=== PATIENT | female | born 2000 | race Caucasian/White ===

== ENCOUNTER 2024-09-11 20:30 | Emergency (ER) | payer BC, SELFPAY ==
[2024-09-11 20:33] VITALS: BP 141/95
--- NOTE | 2024-09-11 21:00 | ED.GENMED ---
History of Present Illness
General
Chief Complaint: Abdominal Pain
Source: patient
Exam Limitations: none
Time Seen by Provider: 09/11/24 20:59
Nursing documentation reviewed up to this point in time: agreed with
History of Present Illness
History of Present Illness:
24-year-old female with history of PCOS, POTS presents for pain across her upper abdomen which she's had off and on since June but today it was also at the same level in her back. Went to and sent here for evaluation.
She saw PCP 2 weeks ago for the upper abd pain and told to continue her Pepcid 20 mg BID which she has done. Pain today was 8/10 at one point, now 08/12, Denies f/c/n/v/d, has hx constipation takes Miralax prn, had BM this a.m. and also 2 days ago
but stool was hard and feels constipated.
LMP 08/13, went back on Loestrin OC in Jun and periods have been irregular.
Past History
Past History
ED Past Medical History: Other (PCOS, POTS)
ED Past Surgical History: None
Social History
Tobacco: Non-smoker
Alcohol: Occasional
Personal: Single
Living: with family
Employment: Student
Review of Systems
Review of Systems
Allergies reviewed?: Yes
All Other Systems: ROS reviewed and negative except as documented in HPI and ROS
Constitutional: Denies fever or chills
Respiratory: Denies trouble breathing
Cardiac: Denies chest pain
ABD/GI: Reports abdominal pain and constipated; Denies nausea, vomiting, diarrhea, bloody stools or black stools
: Denies dysuria, frequency, difficulty voiding or urgency
Musculoskeletal: Reports back pain (at bra level occurred today along with the pain across upper abdomen)
Skin: Reports no symptoms
Neurological: Reports no symptoms
Phy Exam
Physical Exam
Physical Exam:
GENERAL: No acute distress. A&Ox3.
CONSTITUTIONAL: Afebrile.
EYES: clear, conjunctivae normal
ENMT: moist mucus membranes
RESPIRATORY: Regular respirations, nonlabored, lungs clear.
CARDIOVASCULAR: Regular rate and rhythm, no murmurs, no rubs.
GI: Soft, pain to palpation across upper abdomen. normal BS
MUSCULOSKELETAL: Moves with ease. Well perfused.
SKIN: Warm, dry, pink
PSYCH: Normal mood and affect. Well kept, interactive and appropriate
NEUROLOGIC: Awake, alert and oriented. No focal neurological deficits
Course
Orders/Labs/Results
Orders:
Orders
09/11/24 20:36
ECG [Electrocardiogram (*1)] Urgent
Reason for Study: Abdominal Pain
EKG- Treatment ONCE
09/11/24 21:08
Test Result ONCE
US Abdomen Complete/Upper Urgent
Comment:
Reason For Exam: pain across upper abdomen and same level in back
09/11/24 21:31
Complete Blood Count/With Diff Urgent
Comprehensive Metabolic Panel Urgent
HCG, Serum Qualitative Screen Urgent
Lipase Urgent
Abnormal Lab Results
09/11/24
21:31
MCH 31.9 H pg
(27.0-31.0)
MPV 11.4 H fL
(7.4-10.4)
Glucose 133 H mg/dl
(70-99)
ALT 38 H U/L
(0-35)
09/11/24 21:31
09/11/24 21:31
Vital Signs
Initial and Last Documented VS:
Initial Vital Signs
Temp Pulse Resp BP Pulse Ox
98.0 F 100 20 141/95 99
09/11/24 20:33 09/11/24 20:33 09/11/24 20:33 09/11/24 20:33 09/11/24 20:33
Last Documented Vital Signs
Temp Pulse Resp BP Pulse Ox
98.4 F 100 20 107/71 100
09/11/24 21:37 09/11/24 20:33 09/11/24 20:33 09/11/24 22:00 09/11/24 22:15
MDM/Problems Addressed
Differential Diagnosis Includes:
Gastritis, PUD, pancreatitis
MDM/Problems Addressed:
24-year-old female with history of PCOS, POTS presents for pain across her upper abdomen which she's had off and on since June but today it was also at the same level in her back which caused her concern. Went to and sent here for evaluation.
She saw PCP 2 weeks ago for the upper abd pain and told to continue her Pepcid 20 mg BID which she has done. Pain today was 8/10 at one point, now 3/10, Denies f/c/n/v/d, has hx constipation takes Miralax prn, had BM this a.m. and also 2 days ago
but stool was hard and feels constipated.
LMP 08/13, went back on Loestrin OC in Jun and periods have been irregular.
NAD, tender across upper abdomen.
10:45 p.m.
CBC normal
CMP normal
Lipase normal
HCG neg
11:30 p.m.
US upper abdomen radiology report read: IMPRESSION: Unremarkable abdominal ultrasound.
Copy given to pt.
will trial Carafate and follow up with GI or her PCP
rx for Carafate sent to her pharmacy
*EKG
EKG Intrepretation Date: 09/11/24
Interpretation: normal
Heart Rate: 78
Rate: normal
Rhythm: sinus
Mobile: normal axis
Interval: normal interval
QRS Pattern: normal QRS
Ischemia: no ischemia
*Critical Care Note
Total Time (30-74mins, 75-104mins- exclusive of procedures): Not Applicable
ED Attending Note
-
Portions of this chart may have been created with voice recognition software.� Occasional wrong word or��sound alike� substitutions may have occurred due to the inherent limitations of voice recognition software.
Discharge Plan
Departure
Patient Disposition: Home (Routine Discharge)
Date of Disposition: 09/11/24
Time of Disposition: 23:30
Patient with high blood pressure during this ER visit?: No
Condition: Good
Discharge Problem:
Upper abdominal pain, Constipation
Instructions: Acid Reflux and GERD in Adults (DC), High-fiber diet, Constipation in adults - ED discharge instructions, Abdominal Pain
Prescriptions:
New
sucralfate [Carafate] 1 gram tablet
1 g PO ACHS Qty: 30 0RF
Referrals:
Aleja Cm MD [Family Provider] - As needed
Ibis Trejo, DO [Active] - Next open appointment
Activity Restrictions/Additional Instructions:
As we discussed, nothing worrisome in your workup here today.
Make appointment with the GI doctor
Try the Carafate and let your doctor know if it helps. I sent a prescription to your pharmacy
Interventions
Interventions:
*Risk Screen - Suicide Last Done: 09/11/24 21:38
*General Assessment Last Done: 09/11/24 20:33
*Neglect/Abuse Screening Last Done: 09/11/24 21:38
*ED- Fall Risk Assessment Last Done: 09/11/24 21:38
*ED COVID-19 Vaccine History Last Done: 09/11/24 21:38
*Nursing Disposition Last Done: 09/11/24 23:44
VU-[id number] Assessment Last Done: 09/11/24 21:39
Discharge Date and Time
Discharge Date/Time: 09/11/24 23:53
Print Language: [id number]
[2024-09-11 21:33] VITALS: BP 111/65
[2024-09-11 21:37] VITALS: BMI 28.3
[2024-09-11 21:41] LABS: % Basophils 0.5 % (0-2); % Eosinophils 0.7 % (0-6); % Immature Granulocytes 0.2 % (0-0.5); % Lymphocytes 32.6 % (20.5-51.1); % Monocytes 8.7 % (1.7-9.3); % Neutrophils 57.3 % (42.2-75.2); Absolute Monocytes 0.5 10^3/uL (0.1-0.6); Absolute Neutrophils 3.5 10^3/uL (1.4-6.5); Hematocrit 45.4 % (37.0-47.0); Hemoglobin 15.7 g/dL (12.0-16.0); Mean Corp Hgb Conc. 34.6 g/dL (33.0-37.0); Mean Corpuscular Hgb 31.9 pg (27.0-31.0); Mean Corpuscular Volume 92.3 fL (81.0-99.0); Mean Platelet Volume 11.4 fL (7.4-10.4); Nucleated Red Blood Cells % 0 %; Platelet Count 231 10^3/uL (130-400); Red Blood Cell Count 4.92 10^6/uL (4.20-5.40); White Blood Cell Count 6.1 10^3/uL (4.8-10.8)
[2024-09-11 21:51] LABS: HCG, Serum Qualitative Screen Negative
[2024-09-11 21:55] LABS: ALT (SGPT) 38 U/L (0-35); AST (SGOT) 36 U/L (14-36); Albumin 4.5 g/dl (3.5-5.0); Alkaline Phosphatase 77 U/L (38-126); Blood Urea Nitrogen 17 mg/dl (7-17); Carbon Dioxide 29 mmol/L (22-30); Chloride 106 mmol/L (98-107); Estimated Creatinine Clearance 86 ml/min; Glucose 133 mg/dl (70-99); Lipase 52 U/L (23-300); Potassium 3.9 mmol/L (3.5-5.1); Sodium 142 mmol/L (135-145); Total Bilirubin 0.4 mg/dl (0.2-1.3); Total Protein 7.6 g/dl (6.3-8.2); eGFR > 60.00
[2024-09-11 22:00] VITALS: BP 107/71
== END 2024-09-11 23:53 | disposition home or self-care (01) ==
LOC: EMR 20:30
PROVIDERS: Registered Nurse; EMERGENCY PHYSICIAN Student in an Organized Health Care Education/Training Program; FAMILY PHYSICIAN Student in an Organized Health Care Education/Training Program
DX: K59.00 Constipation, unspecified (principal); R10.10 Upper abdominal pain, unspecified; E28.2 Polycystic ovarian syndrome
CPT/HCPCS: 99284; 76700; 80053; 83690; 84703; 85025; 93005